=== PATIENT | male | born 1995 | race Caucasian/White ===

== ENCOUNTER 2019-11-19 14:11 | Emergency (ER) | payer BC, SELFPAY ==
[2019-11-19 14:13] VITALS: BP 131/72; PULSE 79; RESP 15; TEMP 36.4; O2SAT 99
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
[2019-11-19 15:14] VITALS: BP 136/66; PULSE 84; RESP 16; O2SAT 98
[2019-11-19] MEDS: oxyCODONE 5 MG TAB PO (15:15)
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
[2019-11-19] MEDS: Ondansetron O.D.T. 4 MG TABEF (16:05)
[2019-11-19] MEDS: Ondansetron O.D.T. 4 MG TABEF, 3 TABS/BTL PO (18:00)
[2019-11-19 18:02] VITALS: BP 128/72; PULSE 80; RESP 15; O2SAT 98
== END 2019-11-19 17:55 | disposition home or self-care (01) ==
PROVIDERS: Emergency Provider Physician Assistant
DX: S43.52XA Sprain of left acromioclavicular joint, initial encounter (principal); V18.0XXA Pedal cycle driver injured in noncollision transport accident in nontraffic accident, initial encounter; Y93.55 Activity, bike riding
CPT/HCPCS: 99284; 73000; 73030; 99283; L3650; L3670